=== PATIENT | female | born 1995 | race Caucasian/White ===

== ENCOUNTER → 2019-03-26 | Outpatient (CLI) | payer BC ==
[2019-03-26 16:40] LABS: APPEARANCE,URINE CLEAR (CLEAR); BILIRUBIN,URINE NEGATIVE (NEGATIVE); UA COLOR YELLOW (YELLOW); UROBILINOGEN,URINE NORMAL (NEGATIVE)
[2019-03-26 16:44] LABS: BASOPHIL % 0.5 % (0.0-0.2); EOSINOPHIL # 0.1 10^3/uL (0.0-0.2); EOSINOPHIL % 1.4 % (0.0-5.0); HEMOGLOBIN 13.6 g/dL (12.0-15.0); LYMPHOCYTES # 2.9 10^3/uL (1.0-4.8); LYMPHOCYTES % 37.2 % (24.0-44.0); MEAN CELL HGB CONCENTRATION 34.2 g/dL (33-37); MEAN CORP VOLUME 87.7 fL (78-100); MEAN PLATELET VOLUME 9.9 fL (7.8-11.0); MONOCYTES # 0.5 10^3/uL (0.3-0.8); MONOCYTES % 5.9 % (5.0-12.0); NEUTROPHIL # 4.3 10^3/uL (1.8-7.7); NEUTROPHILS % 54.9 % (41.0-85.0); PLATELET COUNT 247 10^3/uL (150-400); RED CELL DISTRIBUTION WIDTH 12.5 % (11.5-14.5); WHITE BLOOD CELL 7.8 10^3/uL (4.5-11.0)
[2019-03-26 17:10] LABS: CARBON DIOXIDE 27.6 mmol/L (20.0-32)
[2019-03-26 18:57] LABS: ERYTHROCYTE SEDIMENTATION RATE 3 mm/hr (0-20)
[2019-03-30 08:15] LABS: IMMUNOGLOBULIN A, QN, SERUM 187 mg/dL (87-352); IMMUNOGLOBULIN G, QN, SERUM 881 mg/dL (700-1600); IMMUNOGLOBULIN M, QN, SERUM 168 mg/dL (26-217)
[2019-03-30 17:09] LABS: HEP A AB, IgM Negative (Negative)
[2019-03-31 15:11] LABS: ACTIN (SMOOTH MUSCLE) ANTIBODY 5 Units (0-19); MITOCHONDRIAL (M2) ANTIBODY <20.0 Units (0.0-20.0)
== END | disposition home or self-care (01) ==
LOC: LAB 15:38
PROVIDERS: ATTEND Internal Medicine
DX: B15.9 Hepatitis A without hepatic coma (principal); N72 Inflammatory disease of cervix uteri; B27.90 Infectious mononucleosis, unspecified without complication; D84.8 Other specified immunodeficiencies
CPT/HCPCS: 36415; 80053; 80074; 81000; 82103; 82784; 82785; 83010; 83036; 83516; 83520; 84439; 84443; 85025; 85060; 85651; 86038; 86162; 86225; 86256; 86431; 86618; 86644; 86664; 86665; 86880; 87086; 87476